=== PATIENT | female | born 1985 | race Two or more races ===

== ENCOUNTER 2017-03-07 21:46 | Emergency (ER) | payer MEDICAID, OTHER ==
[~2017-03-07] VITALS: Ht 157.5 cm; Wt 74.8 kg
[2017-03-07 22:00] VITALS: BP 173/92
[2017-03-07 22:43] LABS: Basophils # (auto) 0 uL; Basophils % (auto) 0.2 % (0.0-2.0); CONDITION Y; DEFINITIVE SEE PRINTOUT; Eosinophils # (auto) 0.2 uL; Eosinophils % (auto) 2.2 % (0.0-7.0); Hematocrit 40.9 % (36.0-46.0); Hemoglobin 13.6 g/dL (12.2-16.2); Lymphocytes # (auto) 3.1 uL; Lymphocytes % (auto) 40.4 % (10.0-50.0); Mean Corpuscular Hemoglobin 26.2 pg (28.0-32.0); Mean Corpuscular Hgb Conc. 33.2 g/dL (32.0-36.0); Mean Corpuscular Volume 78.9 fL (80.0-100.0); Mean Platelet Volume 9.7 fL (7.4-10.4); Monocytes # (auto) 0.5 uL; Monocytes % (auto) 6.8 % (0.0-12.0); Neutrophils # (auto) 3.9 uL; Neutrophils % (auto) 50.4 % (37.0-80.0); Platelet Count (auto) 297 10^3/uL (140-450); White Blood Cell 7.7 10^3/uL (4.4-10.8)
[2017-03-07 23:04] LABS: Albumin 3.7 g/dL (3.4-5.0); BUN/Creatinine Ratio 20.3; Calcium 8.8 mg/dL (8.5-10.1); Potassium 3.9 mmol/L (3.5-5.1)
[2017-03-07 23:06] LABS: Total Protein 7.9 g/dL (6.4-8.2)
== END 2017-03-08 01:37 | disposition left against medical advice (07) ==
LOC: ER 21:48
DX: R10.11 Right upper quadrant pain (principal); Z53.21 Procedure and treatment not carried out due to patient leaving prior to being seen by health care provider
CPT/HCPCS: 36415; 80053; 82150; 83690; 85025